=== PATIENT | female | born 1985 | race African-American/Black ===

== ENCOUNTER 2018-01-16 17:54 | Emergency (ER) | payer SELFPAY ==
[2018-01-16 19:26] LABS: Absolute Lymphocytes (CBC) 3.2 K/uL (0.7-4.9); Absolute Monocytes 0.7 K/uL (0.1-1.3); Absolute Neutrophil 2.5 K/uL (1.8-8.0); Basophils % 0.4 % (0-1.3); MCH 25.1 pg (27.0-35.0); MCV 79.8 fL (80-100); MPV 8.3 fL (7.6-11.3); Monocytes % 10.5 % (3.3-12.3); RBC Red Blood Cell Count 4.01 M/uL (3.86-4.86)
[2018-01-16 19:32] LABS: Bicarbonate 28 mEq/L (21-31); Glucose Level 108 mg/dL (65-120); Potassium 3.6 mEq/L (3.6-5.0); Sodium Level 138 mEq/L (135-145)
[2018-01-16 19:35] LABS: ALT/SGPT 25 IU/L (10-60); AST/SGOT 28 IU/L (10-42); Albumin 3.9 g/dL (3.2-5.5); Alkaline Phosphatase 52 IU/L (42-121); BUN Blood Urea Nitrogen 12 mg/dL (6-20); Bilirubin Total < 0.2 mg/dL (0.3-1.2); Protein, Total 7.7 g/dL (6.0-8.3)
[2018-01-16 19:38] LABS: Urine Blood 3+ (NEG); Urine Glucose NEGATIVE (NEG); Urine Protein 2+ (NEG); Urine Specific Gravity >1.030 (1.005-1.030)
--- NOTE | 2018-01-16 20:28 | EDPHYS ---
Physician Documentation [facility] Name: Мария Golden Age: 32 yrs Sex: Female : 1985 Arrival Date: 01/16/2018 Time: 17:56 Bed 27 Private MD: None, None ED Physician Luis Antonio Reeder HPI: 01/16 20:00 This 32 yrs old Black Female presents to ER via Ambulatory with complaints of Weakness. pm1 20:00 The patient presents to the emergency department with weakness of the entire body, pm1 generalized weakness. Onset: The symptoms/episode began/occurred 2 day(s) ago. Context: occurred at work. Associated signs and symptoms: Pertinent positives: weakness, Diarrhea, Pertinent negatives: fever, headache. Patient's baseline: Neuro: alert and fully oriented, Motor: no deficits, Ambulation: walks without assistance, Speech: normal, The patient has a previous history of anemia. Patient with symptoms of pica, wants to eat dirt. Patient feels that she might be anemic due to the desire to eat dirty at work. Patient's and daughter with same presentation of illness as the patient over the weekend. 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 - Social history:: Smoking status: Patient/guardian denies using tobacco, never smoked. ROS: 20:00 Constitutional: Negative for fever, chills, and weight loss, Eyes: Negative for injury, pm1 pain, redness, and discharge, ENT: Negative for injury, pain, and discharge, Neck: Negative for injury, pain, and swelling, Cardiovascular: Negative for chest pain, palpitations, and edema. 20:00 Back: Negative for injury and pain, : Negative for injury, bleeding, discharge, and swelling, MS/Extremity: Negative for injury and deformity, Skin: Negative for injury, rash, and discoloration. 20:00 Respiratory: Positive for cough, Negative for shortness of breath, sputum production, wheezing. 20:00 Abdomen/GI: Positive for diarrhea, Negative for abdominal pain, nausea and vomiting. 20:00 Neuro: Positive for weakness, Negative for dizziness. Exam: 20:00 Constitutional: This is a well developed, well nourished patient who is awake, alert, pm1 and in no acute distress. Head/Face: Normocephalic, atraumatic. Eyes: Pupils equal round and reactive to light, extra-ocular motions intact. Lids and lashes normal. Conjunctiva and sclera are non-icteric and not injected. Cornea within normal limits. Periorbital areas with no swelling, redness, or edema. ENT: Nares patent. No nasal discharge, no septal abnormalities noted. Tympanic membranes are normal and external auditory canals are clear. Oropharynx with no redness, swelling, or masses, exudates, or evidence of obstruction, uvula midline. Mucous membranes moist. Neck: Trachea midline, no thyromegaly or masses palpated, and no cervical lymphadenopathy. Supple, full range of motion without nuchal rigidity, or vertebral point tenderness. No Meningismus. Chest/axilla: Normal chest wall appearance and motion. Nontender with no deformity. No lesions are appreciated. Cardiovascular: Regular rate and rhythm with a normal S1 and S2. No gallops, murmurs, or rubs. Normal PMI, no JVD. No pulse deficits. Respiratory: Lungs have equal breath sounds bilaterally, clear to auscultation and percussion. No rales, rhonchi or wheezes noted. No increased work of breathing, no retractions or nasal flaring. Abdomen/GI: Soft, non-tender, with normal bowel sounds. No distension or tympany. No guarding or rebound. No evidence of tenderness throughout. Back: No spinal tenderness. No costovertebral tenderness. Full range of motion. Skin: Warm, dry with normal turgor. Normal color with no rashes, no lesions, and no evidence of cellulitis. MS/ Extremity: Pulses equal, no cyanosis. Neurovascular intact. Full, normal range of motion. 20:00 Neuro: Orientation: is normal, Cranial nerves: CN II- XII are normal as tested, Cerebellar function: normal finger to nose testing, Motor: moves all fours. Vital Signs: 18:00 BP 125 / 80; Pulse 92; Resp 18; Temp 97.8(TE); Pulse Ox 100% on R/A; Weight 88.45 kg; hj Height 5 ft. 7 in. (170.18 cm); Pain 0/10; 19:23 BP 126 / 86; Pulse 89; Resp 16; Pulse Ox 100% on R/A; tl3 19:40 BP 132 / 82; Pulse 83; Resp 16; Pulse Ox 100% on R/A; tl3 20:43 BP 119 / 82; Pulse 86; Resp 18; Pulse Ox 100% ; tl3 18:00 Body Mass Index 30.54 (88.45 kg, 170.18 cm) hj MDM: 18:35 Patient medically screened. pm1 20:26 Data reviewed: vital signs. Data interpreted: Pulse oximetry: on room air is 100 %. pm1 Interpretation: normal. Counseling: I had a detailed discussion with the patient and/or guardian regarding: the historical points, exam findings, and any diagnostic results supporting the discharge/admit diagnosis, lab results, the need for outpatient follow up, to return to the emergency department if symptoms worsen or persist or if there are any questions or concerns that arise at home. 01/16 18:55 Order name: CBC with Diff; Complete Time: 19:39 pm1 01/16 18:55 Order name: CMP; Complete Time: 19:39 pm1 01/16 18:55 Order name: Urine Dipstick-Ancillary (obtain specimen); Complete Time: 19:20 pm1 01/16 18:55 Order name: Flu; Complete Time: 19:39 pm1 01/16 19:35 Order name: Urine Dipstick--Ancillary (enter results); Complete Time: 19:39 rg2 01/16 19:35 Order name: Urine --Ancillary (enter results); Complete Time: 19:39 rg2 01/16 18:55 Order name: Urine Test (obtain specimen); Complete Time: 19:19 pm1 01/16 18:55 Order name: IV Saline Lock; Complete Time: 19:19 pm1 Administered Medications: No medications were administered Disposition: 01/16/18 20:27 Discharged to Home. Impression: Anemia, unspecified. - Condition is Stable. - Discharge Instructions: Anemia, Nonspecific, Diarrhea. - Work release form, Medication Reconciliation Form, Thank You Letter form. - Follow up: Emergency Department; When: As needed; Reason: Worsening of condition. Follow up: Private Physician; When: 2 - 3 days; Reason: Recheck today's complaints, Continuance of care, Re-evaluation by your physician. - Problem is new. - Symptoms have improved. Addendum: 01/19/2018 06:22 Co-signature as Attending Physician, Luis Antonio Reeder MD Available for consultation at p s1 all times. . Signatures: Dispatcher [employer] EDYves Lovett, RN RN hj Gary Ram, AUCTIONEER ART AUCTIONEER ART pm1 Luis Antonio Reeder MD MD ps1 Bina Smith RN RN tl3
--- NOTE | 2018-01-16 20:28 | ER ---
Nurse's Notes [facility] Name: Мария Golden Age: 32 yrs Sex: Female : 1985 Arrival Date: 01/16/2018 Time: 17:56 Bed 27 Private MD: None, None Diagnosis: Anemia, unspecified Presentation: 01/16 17:58 Presenting complaint: Patient states: for the past 2 days, i feel like i have colds, hj and now i feel weak; reports diarrhea, denies abd pain;. Transition of care: patient was not received from another setting of care. Onset of symptoms was January 16, 2018 at 17:59. Care prior to arrival: None. 17:58 Method Of Arrival: Ambulatory 17:58 Acuity: BRYANT 3 18:01 Initial Sepsis Screen: Does the patient meet any 2 criteria? No. Patient's initial sepsis screen is negative. Does the patient have a suspected source of infection? No. Patient's initial sepsis screen is negative. Triage Assessment: 18:00 General: Appears in no apparent distress. uncomfortable, Behavior is calm, cooperative, hj appropriate for age. 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 - Social history:: Smoking status: Patient/guardian denies using tobacco, never smoked. Screenin:45 Abuse screen: Denies threats or abuse. Nutritional screening: No deficits noted. tl3 Tuberculosis screening: No symptoms or risk factors identified. Fall Risk None identified. Assessment: 18:45 Reassessment: pt reports that she passed out at work was supported by her co-workers tl3 and did not hit the ground. She has a hx of anemia, is currently on her cycle and is ill with a cold. Has been out of her iron meds and thinks that the episode was brought on by her anemia. General: Appears in no apparent distress. comfortable, well groomed, well developed, well nourished, Behavior is calm, cooperative, appropriate for age. 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 Neuro: Level of Consciousness is awake, alert, obeys commands, Oriented to person, place, time, situation, Appropriate for age. Cardiovascular: Heart tones S1 S2 present Capillary refill < 3 seconds is > 3 seconds. Respiratory: No deficits noted. Airway is patent Trachea midline Respiratory effort is even, unlabored, Respiratory pattern is regular, symmetrical, Breath sounds are clear bilaterally. GI: No signs and/or symptoms were reported involving the gastrointestinal system. : No signs and/or symptoms were reported regarding the genitourinary system. EENT: No signs and/or symptoms were reported regarding the EENT system. Derm: No signs and/or symptoms reported regarding the dermatologic system. Musculoskeletal: No signs and/or symptoms reported regarding the musculoskeletal system. 19:23 Reassessment: Patient appears in no apparent distress at this time. No changes from tl3 previously documented assessment. Patient and/or family updated on plan of care and expected duration. Pain level reassessed. Patient is alert, oriented x 3, equal unlabored respirations, skin warm/dry/pink. Vital Signs: 18:00 BP 125 / 80; Pulse 92; Resp 18; Temp 97.8(TE); Pulse Ox 100% on R/A; Weight 88.45 kg; hj Height 5 ft. 7 in. (170.18 cm); Pain 0/10; 19:23 BP 126 / 86; Pulse 89; Resp 16; Pulse Ox 100% on R/A; tl3 19:40 BP 132 / 82; Pulse 83; Resp 16; Pulse Ox 100% on R/A; tl3 20:43 BP 119 / 82; Pulse 86; Resp 18; Pulse Ox 100% ; tl3 18:00 Body Mass Index 30.54 (88.45 kg, 170.18 cm) ED Course: 17:56 Patient arrived in ED. mr 17:57 None, None is Private Physician. mr 17:59 Triage completed. hj 18:00 Arm band placed on right wrist. hj 18:22 Gary Ram NP is PHCP. pm1 18:22 Luis Antonio Reeder MD is Attending Physician. pm1 18:45 Bina Smith, TRUDY is Primary Nurse. tl3 18:45 No apparent distress. Awaiting ED provider evaluation. tl3 18:45 Patient has correct armband on for positive identification. Bed in low position. Call tl3 light in reach. Side rails up X 1. Adult w/ patient. Door closed. Noise minimized. Lights dimmed. 18:45 No provider procedures requiring assistance completed. tl3 19:18 Initial lab(s) drawn, by me, sent to lab. Urine collected: clean catch specimen, amanda dh3 colored, blood tinged, Flu and/or RSV swab sent to lab. Inserted saline lock: 20 gauge in left antecubital area, using aseptic technique. Blood collected. 20:44 IV discontinued, intact, bleeding controlled, No redness/swelling at site. Pressure tl3 dressing applied. Administered Medications: No medications were administered Outcome: 20:27 Discharge ordered by MD. pm1 20:44 Discharged to home ambulatory. tl3 20:44 Condition: good 20:44 Discharge instructions given to patient, Instructed on discharge instructions, follow up and referral plans. Demonstrated understanding of instructions, follow-up care. 20:45 Patient left the ED. tl3 Signatures: Ariana Alston Henry, RN RN Gary Ram NP INCIDENT ANALYST pm1 Kaylyn García 3 Bina Smith, TRUDY RN tl3 Corrections: (The following items were deleted from the chart) 18:02 18:00 Pulse 97bpm; Resp 18bpm; Pulse Ox 100% RA; Temp 97.8F Temporal; 88.45 kg; Height hj 5 ft. 7 in.; BMI: 30.5; Pain 0/10; hj 18:03 18:00 Pulse 97bpm; Resp 18bpm; Pulse Ox 100% RA; Temp 97.8F Temporal; 88.45 kg; Height hj 5 ft. 7 in.; BMI: 30.5; Pain 0/10; hj 19:21 19:18 Initial lab(s) drawn, by me, sent to lab. Urine collected: clean catch specimen, dh3 amanda colored, Flu and/or RSV swab sent to lab. dh3
== END 2018-01-16 20:45 | disposition home or self-care (01) ==
LOC: ER 17:54
DX: D64.9 Anemia, unspecified (principal)
CPT/HCPCS: 36415; 80053; 81003; 81025; 85025; 87804; 99283

== ENCOUNTER 2018-08-25 10:30 | Emergency (ER) | payer SELFPAY ==
[2018-08-25 11:48] LABS: Absolute Lymphocytes (CBC) 3.2 K/uL (0.7-4.9); Absolute Monocytes 0.5 K/uL (0.1-1.3); Absolute Neutrophil 2.9 K/uL (1.8-8.0); Basophils % 0.7 % (0-1.3); Eosinophils % 0.3 % (0-4.4); Hematocrit 28.9 % (36.0-45.0); Lymphocytes % 47.6 % (15.3-44.8); MCH 26.8 pg (27.0-35.0); MCV 81.4 fL (80-100); MPV 8.1 fL (7.6-11.3); Monocytes % 7.9 % (3.3-12.3); RBC Red Blood Cell Count 3.55 M/uL (3.86-4.86)
[2018-08-25] MEDS ORDERED: KETOROLAC 30 MG/ML INJ ONE (11:50)
[2018-08-25] MEDS ORDERED: MORPHINE 4 MG/ML SYR ONE (11:50)
[2018-08-25] MEDS ORDERED: ONDANSETRON 4 MG/2 ML VIAL ONE (11:50)
[2018-08-25 11:51] LABS: Protime INR 1.04
[2018-08-25] MEDS ORDERED: NA CHLORIDE 0.9% 1,000 ML ONE (11:51)
[2018-08-25] MEDS ORDERED: FAMOTIDINE 20 MG/2 ML VIAL IV ONE (11:51)
[2018-08-25 12:08] LABS: ALT/SGPT 19 U/L (12-78); AST/SGOT 16 U/L (15-37); Albumin 3.2 g/dL (3.4-5.0); Alkaline Phosphatase 59 U/L (45-117); BUN Blood Urea Nitrogen 14 mg/dL (7-18); Bicarbonate 28 mmol/L (21-32); Bilirubin Direct < 0.1 mg/dL (0-0.2); Bilirubin Total 0.3 mg/dL (0.2-1.0); Glucose Level 91 mg/dL (74-106); Lipase 173 U/L (73-393); NT PRO-BNP 51 pg/mL (<125); Potassium 3.9 mmol/L (3.5-5.1); Protein, Total 7.3 g/dL (6.4-8.2); Sodium Level 141 mmol/L (136-145); Troponin (Emerg Dept Use Only) < 0.02 ng/mL (0.0-0.045)
[2018-08-25 12:15] LABS: Blood Morphology Comment NOT SEEN (NOT SEEN); Platelet Estimate ADEQ
--- NOTE | 2018-08-25 12:33 | RAD REPORT ---
EXAM DESCRIPTION: CT - Angio Aorta For Dissection - 08/25/2018 12:19 pm CLINICAL HISTORY: Chest pain radiating to the back. Chest pain;Dissection COMPARISON: No comparisons TECHNIQUE: CT angiography of the aorta was performed with MIPs. All CT scans are performed using dose optimization technique as appropriate and may include automated exposure control or mA/KV adjustment according to patient size. FINDINGS: A left aortic arch is present with normal branching pattern of the great vessels.No acute aortic finding is seen such as aneurysm, penetrating ulcer or dissection. The celiac axis, SMA, AYSE and renal arteries are widely patent. No evidence of pulmonary embolism. The lungs are clear. The liver demonstrates no focal mass or biliary dilatation.The spleen, pancreas, adrenal glands and k idneys are within normal limits for arterial phase imaging. No bowel obstruction, free fluid or abscess.No pathologic enlarged lymphadenopathy identified. No fracture or worrisome bone lesion seen. IMPRESSION: No acute aortic finding is demonstrated.
--- NOTE | 2018-08-25 12:35 | RAD REPORT ---
EXAM DESCRIPTION: US - UPPER EXTREMITY VENOUS UNILATE - 08/25/2018 12:28 pm CLINICAL HISTORY: Pain;Swelling Arm pain and swelling. COMPARISON: No comparisons FINDINGS: Right upper extremity venous system was interrogated with Doppler technique. Normal flow, compressibility and augmentation was noted. There is no DVT present. IMPRESSION: No evidence of right upper extremity deep venous thrombosis.
--- NOTE | 2018-08-25 12:49 | RAD REPORT ---
EXAM DESCRIPTION: RAD - Chest Single View - 08/25/2018 11:28 am CLINICAL HISTORY: CHEST PAIN Chest pain. COMPARISON: Chest Single View dated 04/20/2017 FINDINGS: Portable technique limits examination quality. The lungs are grossly clear. The heart is normal in size. No displaced fractures. IMPRESSION: No acute intrathoracic process suspected.
--- NOTE | 2018-08-25 13:29 | ER ---
Nurse's Notes [facility] Name: Мария Golden Age: 33 yrs Sex: Female : 1985 Arrival Date: 08/25/2018 Time: 10:32 Bed 17 Private MD: Diagnosis: Low back pain;Strain of muscle and tendon of thorax;Strain of muscle and tendon of front wall of thorax;Strain of muscle and tendon of back wall of thorax;Aplastic anemia, unspecified Presentation: 08/25 10:42 Presenting complaint: Patient states: "I've been having pain in my upper middle for the aj1 past 3 days. Today my right arm started swelling and hurting and my right leg is shooting pain" Reports that its hard to walk because of the pain. Denies injury. Transition of care: patient was not received from another setting of care. Onset of symptoms was August 22, 2018. Risk Assessment: Do you want to hurt yourself or someone else? Patient reports no desire to harm self or others. Initial Sepsis Screen: Does the patient meet any 2 criteria? No. Patient's initial sepsis screen is negative. Does the patient have a suspected source of infection? No. Patient's initial sepsis screen is negative. Care prior to arrival: None. 10:42 Method Of Arrival: Ambulatory aj1 10:42 Acuity: BRYANT 4 aj1 Triage Assessment: 10:43 General: Appears in no apparent distress. uncomfortable, Behavior is calm, cooperative, aj1 appropriate for age. Pain: Complains of pain in back, right arm and right leg Pain currently is 10 out of 10 on a pain scale. Neuro: Level of Consciousness is awake, alert, obeys commands. Cardiovascular: Patient's skin is warm and dry. Respiratory: Airway is patent Respiratory effort is even, unlabored, Respiratory pattern is regular, symmetrical. Musculoskeletal: Range of motion: intact in all extremities. 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 - Social history:: Smoking status: Patient/guardian denies using tobacco. - Ebola Screening: : Patient denies travel to an Ebola-affected area in the 21 days before illness onset. Screenin:46 Abuse screen: Denies threats or abuse. Denies injuries from another. Nutritional hj screening: No deficits noted. Tuberculosis screening: No symptoms or risk factors identified. Fall Risk Secondary diagnosis (15 points). Assessment: 10:43 General: Appears in no apparent distress. uncomfortable, Behavior is calm, cooperative, hj appropriate for age. Pain: Complains of pain in right low back and thoracic area and chest and right leg and right arm and back. Neuro: Level of Consciousness is awake, alert, obeys commands, Oriented to person, place, time, situation, Appropriate for age. Cardiovascular: Capillary refill < 3 seconds Patient's skin is warm and dry. Respiratory: Airway is patent Respiratory effort is even, unlabored, Respiratory pattern is regular, symmetrical. GI: No signs and/or symptoms were reported involving the gastrointestinal system. : No signs and/or symptoms were reported regarding the genitourinary system. EENT: No signs and/or symptoms were reported regarding the EENT system. Derm: No signs and/or symptoms reported regarding the dermatologic system. Musculoskeletal: No signs and/or symptoms reported regarding the musculoskeletal system. 11:45 Reassessment: Patient and/or family updated on plan of care and expected duration. Pain hj level reassessed. Patient is alert, oriented x 3, equal unlabored respirations, skin warm/dry/pink. 12:45 Reassessment: Patient and/or family updated on plan of care and expected duration. Pain hj level reassessed. Patient is alert, oriented x 3, equal unlabored respirations, skin warm/dry/pink. 13:42 Reassessment: Patient and/or family updated on plan of care and expected duration. Pain hj level reassessed. Patient is alert, oriented x 3, equal unlabored respirations, skin warm/dry/pink. Vital Signs: 10:43 BP 128 / 76; Pulse 87; Resp 18; Temp 97.9; Pulse Ox 100% on R/A; Height 5 ft. 7 in. aj1 (170.18 cm) (R); Pain 10/10; 11:45 BP 120 / 81; Pulse 68; Resp 18; Pulse Ox 100% on R/A; hj 12:35 BP 114 / 80; Pulse 65; Resp 18; Pulse Ox 100% on R/A; hj ED Course: 10:32 Patient arrived in ED. rg4 10:43 Triage completed. aj1 10:43 Arm band placed on Patient placed in an exam room. aj1 10:46 Asa Osborn MD is Attending Physician. gita 10:46 Yves Niño, RN is Primary Nurse. hj 10:47 Patient has correct armband on for positive identification. Placed in gown. Bed in low hj position. Call light in reach. Side rails up X 1. Adult w/ patient. 11:05 Radiology exam delayed due to lab results not completed at this time. (BUN/Creatinine) kc3 test not completed at this time. 11:28 XRAY Chest (1 view) In Process Unspecified. EDMS 11:30 Inserted saline lock: 22 gauge in left antecubital area, using aseptic technique. Blood hj collected. 11:30 EKG done, by ED staff. hj 11:40 Patient taken to ultrasound. via wheelchair. aa4 12:09 Ultrasound completed. Patient tolerated well. Patient moved back from ultrasound. aa4 12:16 CT completed. Patient moved back from CT. sj 12:19 CT Aorta for Dissection In Process Unspecified. EDMS 12:29 UPPER EXTREMITY VENOUS UNILATE In Process Unspecified. EDMS 13:50 No provider procedures requiring assistance completed. IV discontinued, intact, hj bleeding controlled, No redness/swelling at site. Pressure dressing applied. Administered Medications: 11:45 Drug: NS 0.9% 500 ml Route: IV; Rate: bolus; Site: left antecubital; hj 13:15 Follow up: IV Status: Completed infusion; IV Intake: 500ml hj 11:45 Drug: NS 0.9% 1000 ml Route: IV; Rate: 125 ml/hr; Site: left antecubital; hj 13:14 Follow up: IV Status: Infusion continued hj 11:45 Drug: TORadol 30 mg Route: IVP; Site: left antecubital; hj 13:14 Follow up: Response: No adverse reaction hj 11:45 Drug: morphine 4 mg Route: IVP; Site: left antecubital; hj 13:14 Follow up: Response: No adverse reaction hj 11:45 Drug: Zofran 4 mg Route: IVP; Site: left antecubital; hj 13:13 Follow up: Response: No adverse reaction; Nausea is decreased hj 11:45 Drug: Pepcid 20 mg Route: IVP; Site: left antecubital; 13:13 Follow up: Response: No adverse reaction hj Intake: 13:15 IV: 500ml; Total: 500ml. marylin Outcome: 13:29 Discharge ordered by . gita 13:50 Discharged to home ambulatory, with family. marylin 13:50 Condition: stable 13:50 Discharge instructions given to patient, family, Instructed on discharge instructions, follow up and referral plans. medication usage, Demonstrated understanding of instructions, follow-up care, medications, Prescriptions given X 4. 14:11 Patient left the ED. Signatures: Dispatcher [employer] EDMS Felecia Roman RN RN aj1 Asa Osborn MD MD cha Jones, Pau Lowry4 Yves iNño RN RN hj Garcia, Rubi rg4 Demetrice Mar kc3
--- NOTE | 2018-08-25 13:30 | EDPHYS ---
Physician Documentation [facility] Name: Мария Golden Age: 33 yrs Sex: Female : 1985 Arrival Date: 08/25/2018 Time: 10:32 Bed 17 Private MD: ED Physician Asa Osborn HPI: 08/25 10:59 This 33 yrs old Black Female presents to ER via Ambulatory with complaints of Back gita Pain, Leg Pain, Arm Swelling. 10:59 The patient presents with pain that is chronic, and decreased range of motion. The gita symptoms are located in the thoracic area. Onset: The symptoms/episode began/occurred this morning. The pain radiates to the chest. Severity of symptoms: At their worst the symptoms were moderate, in the emergency department the symptoms are unchanged. 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 - Social history:: Smoking status: Patient/guardian denies using tobacco. - Ebola Screening: : Patient denies travel to an Ebola-affected area in the 21 days before illness onset. ROS: 11:00 Constitutional: Negative for fever, chills, and weight loss, Eyes: Negative for injury, gita pain, redness, and discharge, ENT: Negative for injury, pain, and discharge, Neck: Negative for injury, pain, and swelling, Respiratory: Negative for shortness of breath, cough, wheezing, and pleuritic chest pain, Abdomen/GI: Negative for abdominal pain, nausea, vomiting, diarrhea, and constipation, : Negative for injury, bleeding, discharge, and swelling, Skin: Negative for injury, rash, and discoloration, Neuro: Negative for headache, weakness, numbness, tingling, and seizure, Psych: Negative for depression, anxiety, suicide ideation, homicidal ideation, and hallucinations, Allergy/Immunology: Negative for hives, rash, and allergies, Endocrine: Negative for neck swelling, polydipsia, polyuria, polyphagia, and marked weight changes, Hematologic/Lymphatic: Negative for swollen nodes, abnormal bleeding, and unusual bruising. 11:00 Cardiovascular: Positive for chest pain. 11:00 Back: Positive for decreased range of motion, pain at rest, pain with movement, radiated pain, of the right low back. 11:00 MS/extremity: Positive for decreased range of motion, pain, of the right arm and right leg. Exam: 11:00 Constitutional: This is a well developed, well nourished patient who is awake, alert, gita and in no acute distress. Head/Face: Normocephalic, atraumatic. Eyes: Pupils equal round and reactive to light, extra-ocular motions intact. Lids and lashes normal. Conjunctiva and sclera are non-icteric and not injected. Cornea within normal limits. Periorbital areas with no swelling, redness, or edema. ENT: Nares patent. No nasal discharge, no septal abnormalities noted. Tympanic membranes are normal and external auditory canals are clear. Oropharynx with no redness, swelling, or masses, exudates, or evidence of obstruction, uvula midline. Mucous membranes moist. Neck: Trachea midline, no thyromegaly or masses palpated, and no cervical lymphadenopathy. Supple, full range of motion without nuchal rigidity, or vertebral point tenderness. No Meningismus. Chest/axilla: Normal chest wall appearance and motion. Nontender with no deformity. No lesions are appreciated. Cardiovascular: Regular rate and rhythm with a normal S1 and S2. No gallops, murmurs, or rubs. Normal PMI, no JVD. No pulse deficits. Respiratory: Lungs have equal breath sounds bilaterally, clear to auscultation and percussion. No rales, rhonchi or wheezes noted. No increased work of breathing, no retractions or nasal flaring. Abdomen/GI: Soft, non-tender, with normal bowel sounds. No distension or tympany. No guarding or rebound. No evidence of tenderness throughout. Female : Normal external genitalia. Skin: Warm, dry with normal turgor. Normal color with no rashes, no lesions, and no evidence of cellulitis. Neuro: Awake and alert, GCS 15, oriented to person, place, time, and situation. Cranial nerves II-XII grossly intact. Motor strength 5/5 in all extremities. Sensory grossly intact. Cerebellar exam normal. Normal gait. Psych: Awake, alert, with orientation to person, place and time. Behavior, mood, and affect are within normal limits. 11:00 Back: pain, that is moderate, ROM is painful, normal spinal alignment noted, CVA tenderness, is absent, muscle spasm, is not present. 11:03 Musculoskeletal/extremity: DVT Exam: no pain, no swelling, no tenderness, negative [facility] Homans' sign noted on exam, no appreciated bluish discoloration, no erythema, no increased warmth. 12:17 Musculoskeletal/extremity: ROM: no acute changes, intact in all extremities, limited gita active range of motion due to pain, in the right arm, Circulation is intact in all extremities. Pulses: noted to be 4+ in the bilateral radial, brachial, femoral, popliteal, posterior tibial and and dorsalis pedis arteries., Compartment Syndrome exam of affected extremity: is normal. Joints: All joints appear normal with full range of motion. Vital Signs: 10:43 BP 128 / 76; Pulse 87; Resp 18; Temp 97.9; Pulse Ox 100% on R/A; Height 5 ft. 7 in. aj1 (170.18 cm) (R); Pain 10/10; 11:45 BP 120 / 81; Pulse 68; Resp 18; Pulse Ox 100% on R/A; hj 12:35 BP 114 / 80; Pulse 65; Resp 18; Pulse Ox 100% on R/A; hj MDM: 10:46 Patient medically screened. [facility] 11:03 Data reviewed: vital signs, nurses notes, lab test result(s), EKG, radiologic studies, [facility] CT scan, plain films. 08/25 10:58 Order name: Basic Metabolic Panel; Complete Time: 13: [facility] 08/25 10:58 Order name: CBC with Diff; Complete Time: 13: [facility] 08/25 10:58 Order name: LFT's; Complete Time: 13:08/25 10:58 Order name: Magnesium; Complete Time: 13: [facility] 08/25 10:58 Order name: NT PRO-BNP; Complete Time: 13: [facility] 08/25 10:58 Order name: PT-INR; Complete Time: 13: [facility] 08/25 10:58 Order name: Troponin (emerg Dept Use Only); Complete Time: 13:08/25 10:58 Order name: XRAY Chest (1 view); Complete Time: 13: [facility] 08/25 10:58 Order name: Lipase; Complete Time: : [facility] 08/25 10:58 Order name: Urine Culture [facility] 08/25 11:50 Order name: Manual Differential; Complete Time: 13:26 [facility] 08/25 12:32 Order name: Urine Dipstick--Ancillary (enter results) 08/25 12:32 Order name: Urine --Ancillary (enter results) 08/25 10:58 Order name: EKG; Complete Time: 10:59 [facility] 08/25 10:58 Order name: Cardiac monitoring; Complete Time: 11:04 [facility] 08/25 10:58 Order name: EKG - Nurse/Tech; Complete Time: 11:37 [facility] 08/25 10:58 Order name: IV Saline Lock; Complete Time: 11:37 [facility] 08/25 10:58 Order name: Labs collected and sent; Complete Time: 11:37 [facility] 08/25 10:58 Order name: O2 Per Protocol; Complete Time: 11:04 [facility] 08/25 10:58 Order name: O2 Sat Monitoring; Complete Time: 11:04 [facility] 08/25 10:58 Order name: CT Aorta for Dissection; Complete Time: 13:26 [facility] 08/25 11:43 Order name: UPPER EXTREMITY VENOUS UNILATE; Complete Time: 13:26 [facility] 08/25 10:58 Order name: Urine Dipstick-Ancillary (obtain specimen); Complete Time: 11:37 [facility] 08/25 10:58 Order name: Urine Test (obtain specimen); Complete Time: 11:37 [facility] Administered Medications: 11:45 Drug: NS 0.9% 500 ml Route: IV; Rate: bolus; Site: left antecubital; hj 13:15 Follow up: IV Status: Completed infusion; IV Intake: 500ml hj 11:45 Drug: NS 0.9% 1000 ml Route: IV; Rate: 125 ml/hr; Site: left antecubital; hj 13:14 Follow up: IV Status: Infusion continued hj 11:45 Drug: TORadol 30 mg Route: IVP; Site: left antecubital; hj 13:14 Follow up: Response: No adverse reaction hj 11:45 Drug: morphine 4 mg Route: IVP; Site: left antecubital; hj 13:14 Follow up: Response: No adverse reaction hj 11:45 Drug: Zofran 4 mg Route: IVP; Site: left antecubital; hj 13:13 Follow up: Response: No adverse reaction; Nausea is decreased 11:45 Drug: Pepcid 20 mg Route: IVP; Site: left antecubital; 13:13 Follow up: Response: No adverse reaction Disposition: 08/25/18 13:29 Discharged to Home. Impression: Low back pain, Strain of muscle and tendon of thorax, Strain of muscle and tendon of front wall of thorax, Strain of muscle and tendon of back wall of thorax, Aplastic anemia, unspecified. - Condition is Stable. - Discharge Instructions: Anemia, Nonspecific, Back Pain, Adult, Chronic Back Pain, Musculoskeletal Pain, Back Injury Prevention, Vbsi-[id number], Back Pain, Adult, [id number]-uw-[id number], Radicular Pain. - Prescriptions for Ibuprofen 600 mg Oral Tablet - take 1 tablet by ORAL route every 8 hours As needed take with food; 21 tablet. Skelaxin 800 mg Oral Tablet - take 1 tablet by ORAL route every 8 hours As needed; 30 tablet. Tylenol- Codeine #3 300-30 mg Oral Tablet - take 2 tablet by ORAL route every 6 hours As needed; 30 tablet. Medrol (Giovanni) 4 mg Oral Tablets, Dose Pack - take 1 tablet by ORAL route as directed - follow package instructions; 1 packet. - Medication Reconciliation Form, Thank You Letter, Antibiotic Education, Prescription Opioid Use form. - Follow up: Private Physician; When: 2 - 3 days; Reason: Recheck today's complaints, Continuance of care, Re-evaluation by your physician. - Problem is new. - Symptoms have improved. Signatures: Dispatcher [employer] [facility] Felecia Roman RN RN aj1 Asa Osborn MD MD cha Joaquin, Henry, RN RN hj Corrections: (The following items were deleted from the chart) 11:43 11:37 Extremity Venous [id number] ordered. [facility] 13:31 13:29 08/25/2018 13:29 Discharged to Home. Impression: Low back pain; Strain of muscle gita and tendon of thorax; Strain of muscle and tendon of front wall of thorax; Strain of muscle and tendon of back wall of thorax. Condition is Stable. Discharge Instructions: Back Pain, Adult, Chronic Back Pain, Musculoskeletal Pain, Back Injury Prevention, [id number], Back Pain, Adult, Nuej-kj-Vert, Radicular Pain. Prescriptions for Ibuprofen 600 mg Oral Tablet - take 1 tablet by ORAL route every 8 hours As needed take with food; 21 tablet, Skelaxin 800 mg Oral Tablet - take 1 tablet by ORAL route every 8 hours As needed; 30 tablet, Tylenol-Codeine #3 300-30 mg Oral Tablet - take 2 tablet by ORAL route every 6 hours As needed; 30 tablet, Medrol (Giovanni) 4 mg Oral Tablets, Dose Pack - take 1 tablet by ORAL route as directed - follow package instructions; 1 packet. and Forms are Medication Reconciliation Form, Thank You Letter, Antibiotic Education, Prescription Opioid Use. Follow up: Private Physician; When: 2 - 3 days; Reason: Recheck today's complaints, Continuance of care, Re-evaluation by your physician. Problem is new. Symptoms have improved. [facility] 14:11 13:31 08/25/2018 13:29 Discharged to Home. Impression: Low back pain; Strain of muscle hj and tendon of thorax; Strain of muscle and tendon of front wall of thorax; Strain of muscle and tendon of back wall of thorax; Aplastic anemia, unspecified. Condition is Stable. Discharge Instructions: Back Pain, Adult, Chronic Back Pain, Musculoskeletal Pain, Back Injury Prevention, [id number], Back Pain, Adult, [id number]-[id number], Radicular Pain. Prescriptions for Ibuprofen 600 mg Oral Tablet - take 1 tablet by ORAL route every 8 hours As needed take with food; 21 tablet, Skelaxin 800 mg Oral Tablet - take 1 tablet by ORAL route every 8 hours As needed; 30 tablet, Tylenol-Codeine #3 300-30 mg Oral Tablet - take 2 tablet by ORAL route every 6 hours As needed; 30 tablet, Medrol (Giovanni) 4 mg Oral Tablets, Dose Pack - take 1 tablet by ORAL route as directed - follow package instructions; 1 packet. and Forms are Medication Reconciliation Form, Thank You Letter, Antibiotic Education, Prescription Opioid Use. Follow up: Private Physician; When: 2 - 3 days; Reason: Recheck today's complaints, Continuance of care, Re-evaluation by your physician. Problem is new. Symptoms have improved. gita
[2018-08-25 13:41] LABS: Urine Blood NEGATIVE (NEG); Urine Glucose NEGATIVE (NEG); Urine Protein NEGATIVE (NEG); Urine Specific Gravity 1.025 (1.005-1.030); Urine pH 6.5 (5.0-7.0)
--- NOTE | 2018-08-26 07:37 | EKG ---
Test Date: 2018-08-25 Test Time: 11:23:56 Turkey Farmer: FERNANDEZ MEASUREMENT RESULTS: Intervals: Rate: 60 SD: 138 QRSD: 64 QT: 416 QTc: 416 [place]: P: 65 SD: 138 QRS: 37 T: 35 INTERPRETIVE STATEMENTS: Normal sinus rhythm Normal ECG Compared to ECG 10/14/2017 22:59:16 T-wave abnormality no longer present Electronically Signed On 08-26-18 07:36:56 NEWSPERSON by Collin Sprague
== END 2018-08-25 14:11 | disposition home or self-care (01) ==
LOC: ER 10:30
DX: S29.011A Strain of muscle and tendon of front wall of thorax, initial encounter (principal); S29.012A Strain of muscle and tendon of back wall of thorax, initial encounter; D61.9 Aplastic anemia, unspecified
CPT/HCPCS: 36415; 71045; 71275; 74175; 80048; 80076; 81003; 81025; 83690; 83735; 83880; 84484; 85025; 85610; 87077; 87086; 87088; 87186; 93005; 93971; 96361; 96374; 96375; 99284; J2405; J7030; Q9967